=== PATIENT | male | born 1970 | race African-American/Black ===

== ENCOUNTER → 2021-05-01 | Outpatient (CLI) | payer OTHER | LOC: US 10:26 | PROVIDERS: ATTEND Internal Medicine | DX: R10.10 Upper abdominal pain, unspecified (principal); K82.9 Disease of gallbladder, unspecified | CPT/HCPCS: 76705 ==

== ENCOUNTER 2021-09-18 02:23 | Observation (INO) | payer OTHER ==
[~2021-09-18] VITALS: Ht 165.1 cm; Wt 127.9 kg
[2021-09-18 04:22] VITALS: BP 123/67
[2021-09-18] MEDS ORDERED: ASPIRIN81 MG PO (04:37)
[2021-09-18] MEDS ORDERED: SIMVASTATIN20 MG PO (04:37)
[2021-09-18] MEDS ORDERED: LISINOPRIL10 MG PO (04:37)
[2021-09-18 04:39] VITALS: BP 123/67
[2021-09-18 06:00] LABS: BASOPHILS % 0.3 % (0.0-1.0); HEMATOCRIT 39.5 % (38.2-49.6); HEMOGLOBIN 13.4 g/dL (14.0-18.0); LYMPHOCYTES # (AUTO) 1.1 (1.0-3.2); LYMPHOCYTES % 12.2 % (18.0-39.1); MEAN CORPUSCULAR HEMOGLOBIN 29.6 pg (28-32); MEAN CORPUSCULAR HGB CONC 33.9 g/dL (31-35); MEAN CORPUSCULAR VOLUME 87.4 fL (81-99); MONOCYTES # (AUTO) 0.5 (0.2-0.8); MONOCYTES % 5.9 % (4.4-11.3); NEUTROPHILS # (AUTO) 7.4 (2.1-6.9); NEUTROPHILS % 81.2 % (38.7-80.0); PLATELET COUNT 324 x10e3/uL (140-360); RED BLOOD COUNT 4.52 x10e6/uL (4.3-5.7); RED CELL DISTRIBUTION WIDTH 12.7 % (11.7-14.4)
[2021-09-18 06:34] LABS: ALBUMIN 3.3 g/dL (3.5-5.0); ALBUMIN/GLOBULIN RATIO 0.9 (0.8-2.0); CALCIUM 8.3 mg/dL (8.4-10.2); CREATININE, SERUM 0.78 mg/dL (0.72-1.25)
[2021-09-18 06:35] LABS: THYROID STIMULATING HORMONE 1.024 uIU/mL (0.350-4.940)
[2021-09-18 06:56] LABS: CREATINE KINASE MB 0.8 ng/mL (0-5.0)
[2021-09-18 07:51] VITALS: BP 119/74
[2021-09-18 09:28] VITALS: BP 119/74
[2021-09-18 11:11] VITALS: BP 120/72
[2021-09-18 15:00] VITALS: BP 113/65
[2021-09-18] MEDS ORDERED: METOPROLOL SUCC50 MG PO (18:02)
== END 2021-09-18 18:44 | disposition home or self-care (01) ==
LOC: MED/SURG 03:42
PROVIDERS: ADMIT Family Medicine; ATTEND Family Medicine
DX: I47.1 Supraventricular tachycardia (principal); I10 Essential (primary) hypertension; E78.5 Hyperlipidemia, unspecified; Z98.84 Bariatric surgery status; Z20.822 Contact with and (suspected) exposure to COVID-19
CPT/HCPCS: 36415; 80053; 82550; 82553; 83735; 84436; 84443; 84480; 84484; 85025; 93306; G0378

== ENCOUNTER → 2025-02-01 | Day surgery (SDC) | payer BC, OTHER ==
[~2025-02-01] MED LIST: ASPIRIN81 MG PO; FAMOTIDINE 20 MG/2 ML VIAL IV ONE; FAMOTIDINE20 MG PO; FENTANYL CITRATE/PF 100MCG/2 ML INJ ONE; GLYCOPYRROLATE INJ 0.2 MG/ML VIAL ONE; LIDOCAINE HCL 2% LOCAL INJ 5 ML SDV VIAL INJ ONE; LISINOPRIL10 MG PO; METOPROLOL SUCC50 MG PO; PROPOFOL IV EMULSION 50 ML IV ONE; SIMVASTATIN20 MG PO
[2025-02-01] MEDS: LACTATED RINGER'S 1,000 ML ONE (06:21)
[2025-02-01 08:36] VITALS: TEMP 98.4
[2025-02-01 09:00] VITALS: BP 117/73; PULSE 82; RESP 18; O2SAT 97
== END | disposition home or self-care (01) ==
LOC: OR 05:36
PROVIDERS: ATTEND Internal Medicine Gastroenterology
DX: Z12.11 Encounter for screening for malignant neoplasm of colon (principal); K29.30 Chronic superficial gastritis without bleeding; K25.9 Gastric ulcer, unspecified as acute or chronic, without hemorrhage or perforation; K21.9 Gastro-esophageal reflux disease without esophagitis; K64.0 First degree hemorrhoids; K44.9 Diaphragmatic hernia without obstruction or gangrene; Z71.3 Dietary counseling and surveillance; G47.33 Obstructive sleep apnea (adult) (pediatric); I49.3 Ventricular premature depolarization; I10 Essential (primary) hypertension; E78.5 Hyperlipidemia, unspecified; R73.03 Prediabetes; E66.01 Morbid (severe) obesity due to excess calories; F17.290 Nicotine dependence, other tobacco product, uncomplicated; Z01.810 Encounter for preprocedural cardiovascular examination; Z79.899 Other long term (current) drug therapy; Z68.43 Body mass index [BMI] 50.0-59.9, adult
CPT/HCPCS: 43239; 45378; 88305; 93005; J2003; J2704; J3010; J7121